=== PATIENT | male | born 1955 | race Caucasian/White ===

== ENCOUNTER 2017-05-26 07:11 | Emergency (ER) | payer OTHER ==
[~2017-05-26] VITALS: Ht 182.9 cm; Wt 90.0 kg
[~2017-05-26 07:11] MED LIST: BACTRIM DS1 TAB PO; DOXYCYC MONO100 MG OR; LORTAB 10 OR; NO HOME MEDS
[2017-05-26] MEDS ORDERED: ENALAPRIL5 MG PO (07:20)
[2017-05-26] MEDS ORDERED: LIPITOR10 M1 PO (07:21)
[2017-05-26] MEDS ORDERED: METOPROL TAR25 MG PO (07:21)
[2017-05-26] MEDS ORDERED: PLAVIX75 MG PO (07:21)
[2017-05-26] MEDS ORDERED: EC ASPIRIN325 M1 PO (07:21)
[2017-05-26 08:01] LABS: INFLUENZA A NONE DETECTED (NONE DETECT); INFLUENZA B NONE DETECTED (NONE DETECT)
[2017-05-26 08:10] LABS: IMMATURE GRANULOCYTES 0.4 % (0.0-1.0); MEAN CELL VOLUME 93.7 fL CALC (80.0-100.0); MEAN CORPUSCULAR HGB 31.3 pG CALC (26.0-32.0); MEAN CORPUSCULAR HGB CONC 33.4 g/L CALC (32.0-36.0); NEUT# 7.36 thou/uL (1.82-7.42); RED BLOOD COUNT 5.24 mill/uL (4.70-6.10); RED CELL DISTRI WIDTH 13.4 % (11.5-15.5)
[2017-05-26 08:12] LABS: HEMATOCRIT 49.1 % (39.0-50.0); HEMOGLOBIN 16.4 g/dl (14.0-18.0)
[2017-05-26] MEDS ORDERED: VENTOLIN HFA IN (08:47)
[2017-05-26] MEDS ORDERED: PREDNISONE10 MG PO (08:47)
[2017-05-26 09:00] VITALS: BP 133/65
== END 2017-05-26 09:00 | disposition home or self-care (01) | DRG 192 ==
LOC: ED 07:11
PROVIDERS: Family Medicine
DX: J44.1 Chronic obstructive pulmonary disease with (acute) exacerbation (principal); F17.290 Nicotine dependence, other tobacco product, uncomplicated; J06.9 Acute upper respiratory infection, unspecified; R50.9 Fever, unspecified; R06.02 Shortness of breath; Z95.0 Presence of cardiac pacemaker

== ENCOUNTER 2024-03-02 05:30 | Emergency (ER) | payer OTHER ==
[~2024-03-02] VITALS: Ht 182.9 cm; Wt 113.0 kg
[~2024-03-02 05:30] MED LIST changes: +EC ASPIRIN325 M1 PO; +ENALAPRIL5 MG PO; +LIPITOR10 M1 PO; +METOPROL TAR25 MG PO; +PLAVIX75 MG PO; +PREDNISONE10 MG PO; +VENTOLIN HFA IN
[2024-03-02 05:49] VITALS: BP 121/65
[2024-03-02 06:00] VITALS: BP 118/61
[2024-03-02] MEDS ORDERED: IPRATROPIUM-Albuterol 0.5MG-2.5MG/3 ML NEB ONE (06:00)
[2024-03-02] MEDS ORDERED: FUROSEMIDE 40 MG/4 ML SDV IV ONE (06:00)
[2024-03-02] MEDS ORDERED: DEXAMETHASONE SOD. PHOSPHATE 10 MG/ML VIAL IV ONE (06:00)
[2024-03-02 06:31] VITALS: BP 127/69
[2024-03-02 06:34] LABS: ALBUMIN 3.8 g/dL (3.2-5.0); ALKALINE PHOSPHATASE 77 u/l (38-126); ANION GAP 9 (6-22 (CALC)); BILIRUBIN, TOTAL 0.6 mg/dL (0.2-1.3); BUN 16 mg/dL (8-23); BUN/CREATININE RATIO 18 (12-20 (CALC)); CARBON DIOXIDE 26 mmol/l (22-30); CHLORIDE 109 mmol/l (95-108); CREATININE 0.9 mg/dL (0.7-1.3); ESTIMATED GFR 94 ML/MIN (>=90 (CALC)); POTASSIUM 4.2 mmol/l (3.5-5.1); SODIUM 140 mmol/l (137-146); TOTAL PROTEIN 6.7 g/dL (6.3-8.2)
[2024-03-02] MEDS ORDERED: ASPIRINCHW 81MG PO (06:37)
[2024-03-02] MEDS ORDERED: XARELTO10 MG PO (06:38)
[2024-03-02] MEDS ORDERED: VENTOLIN HFA108 MCG (06:39)
[2024-03-02 06:45] LABS: CPK 3079 u/l (55-170); SGOT/AST 65 u/l (19-48)
[2024-03-02 07:00] VITALS: BP 115/60
[2024-03-02 07:16] LABS: BASO% 0.2 % (0-3); EOS% 1.3 % (0-8); HEMATOCRIT 49.4 % (39.0-50.0); HEMOGLOBIN 16.2 g/dl (14.0-18.0); IMMATURE GRANULOCYTES 0.2 % (0.0-5.0); LYMPH% 29.3 % (15-41); MEAN CORPUSCULAR HGB 30.5 pG CALC (26.0-32.0); MEAN CORPUSCULAR HGB CONC 32.8 g/dL CAL (32.0-36.0); MONO% 8.7 % (2-13); NEUT# 3.13 thou/uL (1.82-7.42); NEUT% 60.3 % (42-76); RED BLOOD COUNT 5.31 mill/uL (4.70-6.10); RED CELL DISTRI WIDTH 13.5 % (11.5-15.5)
[2024-03-02] MEDS ORDERED: ZPAK PO (07:18)
[2024-03-02 07:20] VITALS: BP 115/60
== END 2024-03-02 07:20 | disposition left against medical advice (07) | DRG 195 ==
LOC: ED 05:30
PROVIDERS: Family Medicine
DX: J10.1 Influenza due to other identified influenza virus with other respiratory manifestations (principal)
CPT/HCPCS: J1100; J1940